=== PATIENT | male | born 1970 | race African-American/Black ===

== ENCOUNTER → 2016-10-26 | Outpatient (CLI) | payer OTHER | LOC: RAD 07:45 | PROVIDERS: ATTEND Physician Assistant | DX: R94.5 Abnormal results of liver function studies (principal); K76.0 Fatty (change of) liver, not elsewhere classified | CPT/HCPCS: 76700; 93976 ==

== ENCOUNTER → 2018-07-04 | Outpatient (CLI) | payer OTHER ==
--- NOTE | 2018-07-04 18:12 | EKG REPORT ---
SEVERITY:- ABNORMAL ECG - SINUS RHYTHM ABNORMAL T, CONSIDER ISCHEMIA, DIFFUSE LEADS : Confirmed by: Wang Steven MD 04-Jul-2018 18:12:02
== END ==
LOC: OD 16:17
PROVIDERS: ATTEND Nurse Practitioner Family
DX: R00.2 Palpitations (principal)
CPT/HCPCS: 93005; 93010

== ENCOUNTER 2018-09-01 23:45 | Emergency (ER) | payer OTHER ==
[2018-09-02] MEDS ORDERED: ASPIRIN 81 MG TABLET, CHEWABLE PO ONE (00:15)
--- NOTE | 2018-09-02 00:18 | ER Document Report ---
ED General - General Chief Complaint: Palpitations Stated Complaint: DIFFICULTY BREATHING Time Seen by Provider: 09/02/18 00:07 Mode of Arrival: Ambulatory Information source: Patient Notes: 47-year-old male presents emergency department with complaints of chest pain, palpitations, shortness of breath that started at 5:30 PM after taking his blood pressure medication, nifedipine. Patient states that on 08/15 he was seen at [facility] and transferred to [facility] for cardiac workup. He states that he had a negative stress test. He was told that his symptoms were likely due to the nifedipine and he was told to discontinue this medication. Patient states that he has been off of this medication for the last 2 weeks and he followed up with his primary care physician today who said that he could resume the medication. Patient states that he took 1 dose this evening and began h aving the chest pain, palpitations, shortness of breath. He states that it starting to resolve. Patient has a history of hypertension and hyperlipidemia. He denies a history of coronary artery disease, smoking, diabetes, family history of coronary artery disease. He denies any recent travel, recent surgeries, calf pain, calf swelling, hormone use, history of malignancy. TRAVEL OUTSIDE OF THE [place] IN LAST 30 DAYS: No - HPI Onset: Other - 6.5 hours Onset/Duration: Constant, Persistent Quality of pain: Pressure Severity: Mild Pain Level: Denies Associated symptoms: None, Shortness of breath Exacerbated by: Denies Relieved by: Denies Similar symptoms previously: Yes Recently seen / treated by doctor: Yes - Related Data Allergies/Adverse Reactions: No Known Allergies Allergy (Unverified 09/01/18 23:57) Past Medical History - General Information source: Patient - Social History Smoking Status: Never Smoker Family History: Reviewed & Not Pertinent Review of Systems - Review of Systems Constitutional: No symptoms reported EENT: No symptoms reported Cardiovascular: Chest pain Respiratory: Short of breath Gastrointestinal: No symptoms reported Genitourinary: No symptoms reported Male Genitourinary: No symptoms reported Musculoskeletal: No symptoms reported Skin: No symptoms reported Hematologic/Lymphatic: No symptoms reported Neurological/Psychological: No symptoms reported -: Yes All other systems reviewed and negative Physical Exam - Vital signs Vitals: Pulse Ox 99 09/02/18 00:15 - Notes Notes: PHYSICAL EXAMINATION: GENERAL: Well-appearing, well-nourished and in no acute distress. HEAD: Atraumatic, normocephalic. EYES: Pupils equal round and reactive to light, extraocular movements intact, sclera anicteric, conjunctiva are normal. ENT: Nares patent, oropharynx clear without exudates. Moist mucous membranes. NECK: Normal range of motion, supple without lymphadenopathy LUNGS: Breath sounds clear to auscultation bilaterally and equal. No wheezes rales or rhonchi. HEART: Regular rate and rhythm without murmurs ABDOMEN: Soft, nontender, nondistended abdomen. No guarding, no rebound. No masses appreciated. Musculoskeletal: Normal range of motion, no pitting or edema. No cyanosis. NEUROLOGICAL: Cranial nerves grossly intact. Normal speech, normal gait. Normal sensory, motor exams PSYCH: Normal mood, normal affect. SKIN: Warm, Dry, normal turgor, no rashes or lesions noted. Course - Re-evaluation Re-evalutation: 09/02/18 00:28 EKG: Ventricular rate 125, RI interval 115, QRS duration 76, QTc 421, sinus tachycardia. No ST segment elevation. 09/02/18 00:46 Repeat EKG: Ventricular rate 93, RI interval 132, castration 88, QTc 448, sinus rhythm. T wave inversions in lead II, aVF, V3, V4, V5, V6. 09/02/18 03:48 Labs and imaging obtained. Patient had 2 negative troponins. Patient's d-dimer came back elevated. A CTA of the chest was done that was normal. Patient continues to be asymptomatic. Instructed the patient to stop taking the nifed ipine, to follow-up with his primary care physician this week, and to return to the emergency department for worsening symptoms. 09/02/18 03:49 - Vital Signs Vital signs: Temp Pulse Resp BP Pulse Ox 99 09/02/18 00:15 - Laboratory Result Diagrams: 09/02/18 00:25 09/02/18 00:25 Laboratory results interpreted by me: 09/02/18 09/02/18 09/02/18 00:25 00:25 00:25 Seg Neutrophils % 40.1 L Lymphocytes % 50.7 H D-Dimer 0.53 H Glucose 161 H ALT 75 H Discharge - Discharge Referrals: NABILA KHANNA, DAVID-C [Primary Care Provider] - Follow up as needed
[2018-09-02 00:36] LABS: ABSOLUTE EOSINOPHILS # (AUTO) 0.1 10^3/uL (0.0-0.6); ABSOLUTE LYMPHOCYTES (AUTO) 3.1 10^3/uL (0.5-4.7); ABSOLUTE MONOCYTES (AUTO) 0.4 10^3/uL (0.1-1.4); ABSOLUTE NEUT (AUTO) 2.5 10^3/uL (1.7-8.2); BASOPHILS % (AUTO) 0.8 % (0-2); EOSINOPHILS % (AUTO) 1.7 % (0-6); HEMOGLOBIN 15.6 g/dL (13.5-17.0); LYMPHOCYTES % (AUTO) 50.7 % (13-45); MEAN CORPUSCULAR HEMOGLOBIN 28.2 pg (27.0-33.4); MEAN CORPUSCULAR HGB CONC 35.4 g/dL (32.0-36.0); MEAN CORPUSCULAR VOLUME 80 fl (80-97); MONOCYTES % (AUTO) 6.7 % (3-13); PLATELET COUNT 251 10^3/uL (150-450); RED BLOOD COUNT 5.52 10^6/uL (4.35-5.55); RED CELL DISTRIBUTION WIDTH 12.8 % (11.5-14.0); SEGMENTED NEUTROPHILS % (AUTO) 40.1 % (42-78); TOTAL CELLS COUNTED % (AUTO) 100 %; WHITE BLOOD COUNT 6.2 10^3/uL (4.0-10.5)
--- NOTE | 2018-09-02 00:51 | RADIOLOGY REPORT (SQ) ---
EXAM DESCRIPTION: XR CHEST 1 VIEW COMPLETED DATE/TME: 09/02/2018 00:15 CLINICAL HISTORY: chest pain COMPARISON: None. FINDINGS: Single frontal view of the chest. Leads overlie the chest. The cardiomediastinal silhouette has normal size and contour. No consolidation, pneumothorax, or pleural effusion. No acute osseous abnormalities identified. Upper abdominal soft tissues are unremarkable. IMPRESSION: 1. No acute pulmonary process identified.
[2018-09-02 00:57] LABS: ALANINE AMINOTRANSFERASE 75 U/L (21-72); ALBUMIN 4.7 g/dL (3.5-5.0); ALKALINE PHOSPHATASE 78 U/L (38-126); ANION GAP 12 (5-19); ASPARTATE AMINO TRANSFERASE 51 U/L (17-59); BILIRUBIN,DIRECT 0.3 mg/dL (0.0-0.4); BILIRUBIN,TOTAL 0.4 mg/dL (0.2-1.3); BLOOD UREA NITROGEN 14 mg/dL (7-20); CARBON DIOXIDE 23 mmol/L (22-30); CHLORIDE 102 mmol/L (98-107); GLUCOSE 161 mg/dL (75-110); POTASSIUM 4.2 mmol/L (3.6-5.0); SODIUM 137.4 mmol/L (137-145); TOTAL PROTEIN 7.8 g/dL (6.3-8.2)
--- NOTE | 2018-09-02 02:03 | RADIOLOGY REPORT (SQ) ---
CLINICAL DATA: 47-year-old male with chest pain and shortness of breath. TECHNICAL DATA: Following the administration of intravenous contrast, multiple high-resolution axial images of the chest were performed followed by sagittal and coronal reconstructed images. Coronal MIP images were also performed. The CT study is performed according to ALARA (as low as reasonably achievable) or ALARA/IMAGE GENTLY, with automatic adjustment of mA and/or kV according to patient size. Performed on: 09/02/2018 at 1:27 AM COMPARISONS: None FINDINGS: There is satisfactory visualization and contrast opacification of pulmonary arteries. No definite intra-arterial filling defects are identified to suggest acute or chronic pulmonary embolism. The thoracic aorta is normal in caliber and contour without evidence of aneurysm or dissection. 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 The lungs are well expanded and are clear. There is no evidence of a pneumothorax. There are no pleural effusions. The heart is normal in size. There is no pericardial effusion. There is no evidence of reflux of contrast into the hepatic veins to suggest right heart strain. There is no evidence of hilar, mediastinal or axillary lymphadenopathy. No acute osseous abnormality is identified. The visualized upper abdominal structures reveal decreased attenuation of the liver commonly due to fatty infiltration. IMPRESSION: 1. No CT evidence to suggest acute or chronic pulmonary embolism, aortic aneurysm or aortic dissection. 2. No evidence of acute intrathoracic disease. 3. Decreased attenuation of the liver commonly due to fatty infiltration.
[2018-09-02 04:23] VITALS: BP 130/79
--- NOTE | 2018-09-02 07:11 | EKG REPORT ---
SEVERITY:- ABNORMAL ECG - SINUS TACHYCARDIA PROBABLE LEFT ATRIAL ABNORMALITY NONSPECIFIC T ABNORMALITIES, ANT-LAT LEADS : Confirmed by: Wang Steven MD 02-Sep-2018 07:10:21
--- NOTE | 2018-09-02 07:11 | EKG REPORT ---
SEVERITY:- ABNORMAL ECG - SINUS RHYTHM NONSPECIFIC T ABNORMALITIES, DIFFUSE LEADS : Confirmed by: Wang Steven MD 02-Sep-2018 07:10:01
== END 2018-09-02 04:23 | disposition home or self-care (01) ==
LOC: ER 23:45
DX: R07.9 Chest pain, unspecified (principal); R00.2 Palpitations; R06.00 Dyspnea, unspecified; R06.02 Shortness of breath
CPT/HCPCS: 36415; 71045; 71275; 80053; 84484; 85025; 85379; 93005; 93010; 99285

== ENCOUNTER → 2019-02-04 | Outpatient (CLI) | payer OTHER | LOC: OD 14:17 | PROVIDERS: ATTEND Otolaryngology | DX: J30.9 Allergic rhinitis, unspecified (principal) | CPT/HCPCS: 36415; 82785; 86003 ==

== ENCOUNTER → 2019-04-21 | Day surgery (SDC) | payer OTHER ==
[~2019-04-21] MED LIST: ACETAMINOPHEN 1,000 MG/100 ML RTUPB IV ONE; BACITRACIN ZINC OINTMENT 15 GM ONE; CEFAZOLIN 2 GM/D5W RTU 2 GM/50 ML RTUPB IV PRN; CEFAZOLIN SODIUM 2 GM in DEXTROSE 5%-WATER 100 ML IV PRN; COCAINE HCL 4% TOPICAL SOLN 4 ML ONE; DEXAMETHASONE SOD PHOS INJ 10 MG/1 ML VIAL ONE; FENTANYL CITRATE INJ/PF 100 MCG/2 ML AMPUL ONE; LIDOCAINE 2%/EPINEPHRINE INJ 1.7 ML CARTRIDGE ONE; MIDAZOLAM 2 MG/2 ML INJ ONE; ONDANSETRON HCL INJ/PF 4 MG/2 ML SDV ONE; OXYMETAZOLINE HCL 0.05% NASAL SPRAY 15 ML BOTTLE ONE; PROPOFOL INJ 200 MG/20 ML VIAL IV ONE; ROCURONIUM BROMIDE INJ 50 MG/5 ML VIAL IV ONE; SUCCINYLCHOLINE CHLORIDE INJ 200 MG/10 ML VIAL ONE
--- NOTE | 2019-04-21 15:35 | [facility] OPERATIVE REPORT E ---
[facility] Operative Report NAME: DOMINIQUE JIMENES AGE: 48Y DATE OF SURGERY: 04/21/2019 ROOM: HISTORY: A 48-year-old male with a history of nasal dyspnea. Physical exam revealed a deviated nasal septum and inferior turbinate hypertrophy. He presents today for septoplasty and inferior turbinate reduction. Informed consent was obtained from the patient. PREOPERATIVE DIAGNOSES: 1. Deviated nasal septum. 2. Bilateral inferior turbinate hypertrophy. POSTOPERATIVE DIAGNOSES: 1. Deviated nasal septum. 2. Bilateral inferior turbinate hypertrophy. OPERATION: 1. Nasal septoplasty. 2. Inferior turbinate reduction, right side. 3. Inferior turbinate reduction, left side. SURGEON: KRISTY CAMILO MD ANESTHESIA: General via endotracheal intubation. DESCRIPTION OF PROCEDURE: After receiving informed consent from the patient, he was taken to the operating room and placed supine on the operating table. After successful induction and intubation by Anesthesia, pledgets soaked with 4% cocaine were placed into each nasal cavity for approximately 5 minutes, after which time they were withdrawn, and then the nasal septum along with the inferior turbinates were injected with 2% Xylocaine with 1:100,000 epinephrine. Pledgets were replaced. The patient was then prepped and draped in a sterile fashion. The pledgets were removed. A #15 blade was used to make a hemitransfixion incision on the left side. This was carried down onto the nasal floor. Next, using a Caraballo and then a Stutsman elevator, a mucoperichondrial and mucoperiosteal flap was elevated back to the sphenoid rostrum and down onto the nasal floor. The osteocartilaginous junction was and a mucoperiosteal flap was elevated on the right side. Ansari scissors were used to make horizontal cuts in the perpendicular plate of the ethmoid superiorly and inferiorly. This piece of deflection was removed. A small vomer ethmoid spur was removed using a V chisel, and then a cartilaginous spur was removed using the D knife. The septum was then viewed with the flaps in place and found to be relatively straight. The hemitransfixion incision was closed using 4-0 chromic, then a 4-0 plain gut whipstitch was used to secure the septal flaps. Attention was then directed to the turbinate portion where using the Celon intramural cauterization was performed of both inferior turbinates, and then the turbinates were medialized and lateralized using a [place] elevator. Vega splints coated with Bacitracin were placed into each nasal cavity, secured with a 2-0 Prolene, and then finally Afrin-soaked pledgets were placed into each nasal cavity and were secured to each other and front of the nose. These will be removed in the PACU. The patient was then given back to Anesthesia who successfully extubated the patient without any complications. The estimated blood loss was about 15 mL, fluids 500 mL crystalloid. The patient was then transferred to the postanesthesia care unit in stable condition, spontaneous respirations, no complications. DICTATING PHYSICIAN: KRISTY CAMILO M.D. [id number] PHY#: [id number] ID: [id number] JOB#: [id number] ACCT: [id number] cc:KRISTY CAMILO MD >
== END ==
LOC: SC 08:34
PROVIDERS: ATTEND Otolaryngology
DX: J34.2 Deviated nasal septum (principal); J03.91 Acute recurrent tonsillitis, unspecified; J34.3 Hypertrophy of nasal turbinates; J30.9 Allergic rhinitis, unspecified; E11.9 Type 2 diabetes mellitus without complications; Z79.84 Long term (current) use of oral hypoglycemic drugs; I10 Essential (primary) hypertension; Z79.899 Other long term (current) drug therapy; Z79.82 Long term (current) use of aspirin
CPT/HCPCS: 82962; 30802; 30520; J2250; J3490 ×5; J3010; J0330; J2405; J2704; J1100; J0690; J0131; J7060

== ENCOUNTER 2020-01-20 10:32 | Day surgery (SDC) | payer OTHER ==
[2020-01-20] MEDS ORDERED: PROPOFOL INJ 200 MG/20 ML VIAL IV ONE (11:52)
[2020-01-20] MEDS ORDERED: DIPHENHYDRAMINE HCL 50 MG/ML VIAL IV PRN (12:19)
[2020-01-20] MEDS ORDERED: FENTANYL CITRATE INJ/PF 100 MCG/2 ML AMPUL IV PRN ×3 (12:19)
[2020-01-20] MEDS ORDERED: MEPERIDINE HCL/PF INJ 25 MG/1 ML DISP.SYRIN IV PRN (12:19)
[2020-01-20] MEDS ORDERED: PROMETHAZINE HCL INJ 25 MG/1 ML VIAL IV PRN ×2 (12:19)
[2020-01-20] MEDS ORDERED: OXYCODONE-ACETAMINOPHEN 5-325 MG TABLET PO PRN ×2 (12:19)
[2020-01-20 13:42] VITALS: BP 129/87
--- NOTE | 2020-01-20 19:57 | Operative Report ---
Operative Report DATE OF SURGERY: 01/20/20 Operative Report: The risks, benefits and alternatives are discussed with the patient in detail propofol sedation is provided EGD is completed with retroflexion done biopsies are obtained PREOPERATIVE DIAGNOSIS: epigastric pain, GERD POSTOPERATIVE DIAGNOSIS: gastritis, duodenitis OPERATION: EGD with biopsy SURGEON: PANDA BRANTLEY ANESTHESIA: LMAC TISSUE REMOVED OR ALTERED: as noted above COMPLICATIONS: none ESTIMATED BLOOD LOSS: none INTRAOPERATIVE FINDINGS: as noted above PROCEDURE: patient tolerated the procedure well did not have any post procedure complications discharged in good condition Discharge date 01/20/2020 discharged diet and activity = regular follow up on biopsy patient to call the office or go to ED if having any problems
== END 2020-01-20 13:45 | disposition home or self-care (01) ==
LOC: OROUT 10:32
PROVIDERS: ATTEND Internal Medicine Gastroenterology
DX: K29.50 Unspecified chronic gastritis without bleeding (principal); K29.80 Duodenitis without bleeding; K21.9 Gastro-esophageal reflux disease without esophagitis; I10 Essential (primary) hypertension; E11.9 Type 2 diabetes mellitus without complications; E78.5 Hyperlipidemia, unspecified; K76.0 Fatty (change of) liver, not elsewhere classified; M50.30 Other cervical disc degeneration, unspecified cervical region; Z79.84 Long term (current) use of oral hypoglycemic drugs; Z79.899 Other long term (current) drug therapy; Z79.82 Long term (current) use of aspirin; Z03.818 Encounter for observation for suspected exposure to other biological agents ruled out
CPT/HCPCS: 43239; 82962; 87635; 88342 ×2; 88305 ×2; 00731; J2704; 731